=== PATIENT | male | born 1995 | race Hispanic/Latino ===

== ENCOUNTER 2024-11-12 23:32 | Emergency (ER) | payer OTHER, SELFPAY ==
--- NOTE | 2024-11-13 01:26 | EDPHYS ---
Physician Documentation [facility] Name: Cristobal Hollingsworth Age: 29 yrs Sex: Male : 1995 Arrival Date: 11/12/2024 Time: 23:32 Bed IW4 Private MD: ED Physician Kvng Simpson HPI: 11/13 00:27 This 29 yrs old Male presents to ER via Unassigned with complaints of sp4 Irregular Pulse. 22:53 29-year-old male presents with complaint of palpitations elevated heart rate secondary sp4 to drinking too many energy drinks.. Historical: - Allergies: 00:50 No Known Allergies; vc1 - Home Meds: 00:50 None [Active]; vc1 - PMHx: 00:50 None; vc1 - PSHx: 00:50 None; vc1 - Immunization history:: Adult Immunizations unknown. - Infectious Disease History:: Denies. - Social history:: Smoking status: Patient reports the use of cigarette tobacco products, denies chronic smoking, but will smoke occasionally, Reported history of juuling and/or vaping. Patient uses alcohol, on a daily basis. claims drinking about a 6 pack/day. - Family history:: not pertinent. ROS: 22:53 Constitutional: Negative for fever, chills, and weight loss, positive for irregular sp4 heart rate 22:53 All other systems are negative, Exam: 22:53 Constitutional: This is a well developed, well nourished patient who is awake, sp4 moderately intoxicated male Head/Face: Normocephalic, atraumatic. Eyes: Pupils equal round and reactive to light, extra-ocular motions intact. Lids and lashes normal. Conjunctiva and sclera are not injected. Cornea within normal limits. Periorbital areas with no swelling, redness, or edema. ENT: Nares patent. No nasal discharge, no septal abnormalities noted. Tympanic membranes are normal and external auditory canals are clear. Oropharynx with no redness, swelling, or masses, exudates, or evidence of obstruction, uvula midline. Mucous membranes moist. Neck: Trachea midline, no thyromegaly or masses palpated, and no cervical lymphadenopathy. Supple, full range of motion without nuchal rigidity, or vertebral point tenderness. Chest/axilla: Normal chest wall appearance and motion. Nontender with no deformity. No lesions are appreciated. Cardiovascular: Tachycardia mild, no gallops, murmurs, or rubs. Normal PMI, no JVD. No pulse deficits. Respiratory: Lungs have equal breath sounds bilaterally, clear to auscultation and percussion. No rales, rhonchi or wheezes noted. No increased work of breathing, no retractions or nasal flaring. Abdomen/GI: Soft, with normal bowel sounds. No distension or tympany. No guarding or rebound. No evidence of tenderness throughout. Back: No spinal tenderness. No costovertebral tenderness. Skin: Warm, dry with normal turgor. Normal color with no rashes, no lesions, and no evidence of cellulitis. MS/ Extremity: Pulses equal, no cyanosis. Neurovascular intact. Full, normal range of motion. Neuro: Awake and alert, GCS 15, oriented to person, . Cranial nerves II-XII grossly intact. Motor strength 5/5 in all extremities. Sensory grossly intact. Vital Signs: 00:49 BP 139 / 100; Pulse 124; Resp 20; Temp 98.1; Pulse Ox 99% ; Weight 88.9 kg; Height 5 vc1 ft. 7 in. ; Pain 0/10; 01:49 BP 135 / 99; Pulse 114; Resp 20; Pulse Ox 99% ; vc1 00:49 Body Mass Index 30.70 (88.90 kg, 170.18 cm) vc1 00:49 Pain Scale: Adult vc1 [place] Coma Score: 22:53 Eye Response: spontaneous(4). Motor Response: obeys commands(6). Verbal Response: sp4 oriented(5). Total: 15. MDM: 00:29 Medical Screening Exam initiated sp4 22:53 Differential diagnosis: arrythmia, dehydration, stress disorder. Data reviewed: vital sp4 signs, nurses notes, EKG. ED course: EKG revealed moderate tachycardia. But stable for discharge home.. 11/13 00:47 Order name: EKG; Complete Time: 00:48 sp4 11/13 00:47 Order name: EKG - Nurse/Tech; Complete Time: 01:45 sp4 Administered Medications: No medications were administered Disposition Summary: 11/13/24 01:25 Discharge Ordered Notes: We recommend to stop Energy Drinks Location: Home sp4 Problem: new sp4 Symptoms: have improved sp4 Condition: Stable sp4 Diagnosis - Palpitations sp4 Followup: sp4 - With: Private Physician - When: 7 - 10 days - Reason: Recheck today's complaints Discharge Instructions: - Discharge Summary Sheet sp4 - Palpitations sp4 Forms: - Work release form sp - Patient Portal Instructions sp4 Signatures: Sultana Stephens RN RN vc1 Kvng Simpson MD MD sp4
--- NOTE | 2024-11-13 01:26 | ER ---
Nurse's Notes [facility] Name: Cristobal Hollingsworth Age: 29 yrs Sex: Male : 1995 Arrival Date: 11/12/2024 Time: 23:32 Bed IW4 Private MD: Diagnosis: Palpitations Presentation: 11/13 00:49 Chief complaint: Patient states: my friend wanted me to be checked out for irregular vc1 pulse. I drank a lot of monsters today and some beers. Coronavirus screen: Client denies travel out of the [place] in the last 14 days. At this time, the client does not indicate any symptoms associated with coronavirus-19. Ebola Screen: Patient negative for fever greater than or equal to 101.5 degrees Fahrenheit, and additional compatible Ebola Virus Disease symptoms Patient denies exposure to infectious person. Patient denies travel to an Ebola-affected area in the 21 days before illness onset. No symptoms or risks identified at this time. 00:49 Method Of Arrival: Ambulatory vc1 00:50 Initial Sepsis Screen: Does the patient meet any 2 criteria? No. Patient's initial vc1 sepsis screen is negative. Does the patient have a suspected source of infection? No. Patient's initial sepsis screen is negative. Risk Assessment: Do you want to hurt yourself or someone else? Patient reports no desire to harm self or others. 00:50 Acuity: MARY 3 vc1 Triage Assessment: 00:51 General: Appears in no apparent distress. comfortable, Behavior is cooperative, vc1 restless. Pain: Denies pain. EENT: No deficits noted. No signs and/or symptoms were reported regarding the EENT system. Neuro: Level of Consciousness is awake, alert, obeys commands, Oriented to person, place, time, situation, Appropriate for age. Cardiovascular: Capillary refill < 3 seconds Patient's skin is warm and dry. Respiratory: Airway is patent Respiratory effort is even, unlabored, Respiratory pattern is regular, symmetrical. GI: No deficits noted. No signs and/or symptoms were reported involving the gastrointestinal system. : No deficits noted. No signs and/or symptoms were reported regarding the genitourinary system. Derm: Skin is intact, is healthy with good turgor, Skin is dry, Skin is normal, Skin temperature is warm. Musculoskeletal: Circulation, motion, and sensation intact. Range of motion: intact in all extremities. Historical: - Allergies: 00:50 No Known Allergies; vc1 - Home Meds: 00:50 None [Active]; vc1 - PMHx: 00:50 None; vc1 - PSHx: 00:50 None; vc1 - Immunization history:: Adult Immunizations unknown. - Infectious Disease History:: Denies. - Social history:: Smoking status: Patient reports the use of cigarette tobacco products, denies chronic smoking, but will smoke occasionally, Reported history of juuling and/or vaping. Patient uses alcohol, on a daily basis. claims drinking about a 6 pack/day. - Family history:: not pertinent. Screenin:50 [facility] ED Fall Risk Assessment (Adult) History of falling in the last 3 months, vc1 including since admission No falls in past 3 months (0 pts) Confusion or Disorientation No (0 pts) Intoxicated or Sedated Yes (3 pts) Impaired Gait No (0 pts) Mobility Assist Device Used No (0 pt) Altered Elimination No (0 pt) Score/Fall Risk Level 3 or more points = High Risk Oriented to surroundings, Maintained a safe environment, Educated pt \T\ family on fall prevention, incl call for assistance when getting out of bed, Assessed \T\ reinforced patient's understanding of fall precautions. Abuse screen: Denies threats or abuse. Nutritional screening: No deficits noted. Tuberculosis screening: No symptoms or risk factors identified. Assessment: 01:50 Reassessment: Patient appears in no apparent distress at this time. No changes from vc1 previously documented assessment. Patient and/or family updated on plan of care and expected duration. Pain level reassessed. Patient is alert, oriented x 3, equal unlabored respirations, skin warm/dry/pink. Vital Signs: 00:49 BP 139 / 100; Pulse 124; Resp 20; Temp 98.1; Pulse Ox 99% ; Weight 88.9 kg; Height 5 vc1 ft. 7 in. ; Pain 0/10; 01:49 BP 135 / 99; Pulse 114; Resp 20; Pulse Ox 99% ; vc1 00:49 Body Mass Index 30.70 (88.90 kg, 170.18 cm) vc1 00:49 Pain Scale: Adult vc1 [place] Coma Score: 22:53 Eye Response: spontaneous(4). Motor Response: obeys commands(6). Verbal Response: sp4 oriented(5). Total: 15. ED Course: 11/12 23:35 Patient arrived in ED. [id number] 23:53 Patient's name was called from ER lobby. No response. Unable to locate patient. Will vc1 disposition as left without being seen by a provider. 11/13 00:14 Patient's name was called from ER lobby. No response. Unable to locate patient. Will vc1 disposition as left without being seen by a provider. 00:27 Kvng Simpson MD is Attending Physician. sp4 00:51 Triage completed. vc1 00:51 Arm band placed on left wrist. vc1 00:51 Patient placed in waiting room, Patient notified of wait time. vc1 00:52 Patient has correct armband on for positive identification. vc1 01:50 Provided Education on: STOP DRINKING MONSTERS. vc1 01:50 No provider procedures requiring assistance completed. Patient did not have IV access vc1 during this emergency room visit. Administered Medications: No medications were administered Medication: 00:51 VIS not applicable for this client. vc1 Outcome: 01:25 Discharge ordered by . sp4 01:50 Discharged to home ambulatory, vc1 01:50 Condition: stable 01:50 Discharge instructions given to patient, Instructed on discharge instructions, follow up and referral plans. Demonstrated understanding of instructions, follow-up care, 01:51 Patient left the ED. vc1 Signatures: Ashlyn Lewis jj6 Sultana Stephens RN RN vc1 Kvng Simpson MD MD sp4
[2024-11-13 10:03] VITALS: TEMP 98.1; O2SAT 99
[2024-11-13 10:06] VITALS: BP 135/99
--- NOTE | 2024-11-13 12:27 | EKG ---
Test Date: 2024-11-13 Test Time: 01:21:40 Veterinary Medicine Doctor: ROBBIN MEASUREMENT RESULTS: Intervals: Rate: 114 WA: 126 QRSD: 88 QT: 318 QTc: 438 [place]: P: 51 WA: 126 QRS: 77 T: 40 INTERPRETIVE STATEMENTS: Sinus tachycardia Otherwise normal ECG No previous ECG available for comparison Electronically Signed On 11-13-24 12:24:59 CDT by Samuel Simmons
== END 2024-11-13 01:51 | disposition home or self-care (01) ==
LOC: ER 23:32
DX: R00.2 Palpitations (principal); F17.210 Nicotine dependence, cigarettes, uncomplicated
CPT/HCPCS: 93005